=== PATIENT | male | born 1995 | race Caucasian/White ===

== ENCOUNTER 2021-02-21 17:08 | Emergency (ER) | payer SELFPAY ==
--- OUTSIDE RECORDS SUMMARY | 2021-02-21 17:10 | XMS REPORT | Continuity of Care Document ---
:1995 Author Organization [facility] t Address [address] [place] [address] Care Team Providers Name Role Phone Pcp, Does Not Have A Primary Care Physician Parker DIAZ S Attending Clinician Doctor Unassigned, Name Attending Clinician Unavailable Problems Condition Condition Condition Status Onset Resolution Last Treating Co mments Source Name Details Category Date Date Treatment Clinician Date No known No known Disease Unive rs active active ity of problems problems [facility] Allergies, Adverse Reactions, Alerts Allergy Allergy Status Severity Reaction(s) Onset Inactive Treating Comm ents Source Name Type Date Date Clinician AMOXICIL DRUG Active Anaphylaxis 2019-0 Uni vers ELIZABETH 6-21 ity of (BULK) 00:00: [place] 00 [facility] Amoxicil Propensi Active Anaphylaxis 2019-0 U nivers elizabeth ty to 6-21 ity of (Bulk) adverse 00:00: [place] reaction 00 [facility] Social History Social Habit Start Date Stop Date Quantity Comments Source Exposure to Not sure [facility] SARS-CoV-2 (event) Medica l Branch Sex Assigned At [birth year] [facility] 00:00:00 00:00:00 Medical Branch Smoking Status Start Date Stop Date Source Unknown if ever smoked [facility] Medications Ordered Filled Start Stop Current Ordering Indication Dosage Frequency Signature Comments Components Source Medication Medication Date Date Medication? Clinician (SIG) Name Name ketorolac 2020-02- No 30mg 30 mg, Unive rs (TORADOL) 0-18 10-18 Slow IV ity of injection 03:30: 02:43 Push, [place] 30 mg 00 :00 ONCE, 1 Medical dose, On Branch 11/30/20 at 2230, Routine
member of the legislative assembly approving Restricted medication : JAIR LARA pantoprazol 2020-02 Yes [id number] 40mg Take 1 Univers e 0-17 tablet by ity of (PROTONIX) 00:00: mouth [place] 40 mg EC 00 daily. Medical tablet Branch ibuprofen 2020-02 Yes [id number] 800mg Take 1 U nivers 800 mg 0-17 tablet by ity of tablet 00:00: mouth [place] 00 every 8 Medical (eight) Branch hours as needed for Pain (scale 4-6). ondansetron Yes [id number] 4mg Take 1 Univers (ZOFRAN 6-21 tablet by ity of ODT) 4 mg 00:00: mouth [place] disintegrat 00 every 8 Medic al ing tablet (eight) Branch hours as needed for Nausea and Vomiting (N/V). acetaminoph Yes [id number] 1{tbl} Take 1 Univers en-codeine 6-21 tablet by ity of (TYLENOL-CO 00:00: mouth [place] DEINE #3) 00 every 6 Medical 300-30 mg (six) Branch tablet hours as needed for Pain (scale 4-6) (for cough). ondansetron Yes [id number] 4mg Take 1 Univers (ZOFRAN 6-21 tablet by ity of ODT) 4 mg 00:00: mouth [place] disintegrat 00 every 8 Medic al ing tablet (eight) Branch hours as needed for Nausea and Vomiting (N/V). acetaminoph Yes [id number] 1{tbl} Take 1 Univers en-codeine 6-21 tablet by ity of (TYLENOL-CO 00:00: mouth [place] DEINE #3) 00 every 6 Medical 300-30 mg (six) Branch tablet hours as needed for Pain (scale 4-6) (for cough). Immunizations Ordered Filled Immunization Date Status Comments [facility] e Immunization Name Name HPV 2010-01-30 Completed University 00:00:00 [facility] HPV 2010-01-30 Completed University 00:00:00 [facility] HEPATITIS A 2006-09-13 Completed University of 00:00:00 [facility] HEPATITIS A 2006-09-13 Completed University of 00:00:00 [facility] MMR 2001-03-29 Completed University of 00:00:00 [facility] Polio (IPV/OPV) 2001-03-29 Completed Universit y of 00:00:00 [facility] DTAP 2001-03-29 Completed University of 00:00:00 [facility] MMR 2001-03-29 Completed University of 00:00:00 [facility] Polio (IPV/OPV) 2001-03-29 Completed Universit y of 00:00:00 [facility] DTAP 2001-03-29 Completed University of 00:00:00 [facility] HIB 4 Dose Schedule 1998-01-27 Completed Unive rsity of 00:00:00 [facility] Hep B, Adol or Pedi 1998-01-27 Completed Unive rsity of Dosage 00:00:00 [facility] MMR 1998-01-27 Completed University of 00:00:00 [facility] Polio (IPV/OPV) 1998-01-27 Completed Universit y of 00:00:00 [facility] DTAP 1998-01-27 Completed University of 00:00:00 [facility] HIB 4 Dose Schedule 1998-01-27 Completed Unive rsity of 00:00:00 [facility] Hep B, Adol or Pedi 1998-01-27 Completed Unive rsity of Dosage 00:00:00 [facility] MMR 1998-01-27 Completed University of 00:00:00 [facility] Polio (IPV/OPV) 1998-01-27 Completed Universit y of 00:00:00 [facility] DTAP 1998-01-27 Completed University of 00:00:00 [facility] DTAP 1997-11-27 Completed University of 00:00:00 [facility] Hep B, Adol or Pedi 1997-11-27 Completed Unive rsity of Dosage 00:00:00 [facility] HIB 4 Dose Schedule 1997-11-27 Completed Unive rsity of 00:00:00 [facility] MMR 1997-11-27 Completed University of 00:00:00 [facility] Polio (IPV/OPV) 1997-11-27 Completed Universit y of 00:00:00 [facility] DTAP 1997-11-27 Completed University of 00:00:00 [facility] Hep B, Adol or Pedi 1997-11-27 Completed Unive rsity of Dosage 00:00:00 [facility] HIB 4 Dose Schedule 1997-11-27 Completed Unive rsity of 00:00:00 [facility] MMR 1997-11-27 Completed University of 00:00:00 [facility] Polio (IPV/OPV) 1997-11-27 Completed Universit y of 00:00:00 [facility] DTAP 1997-05-29 Completed University of 00:00:00 [facility] Hep B, Adol or Pedi 1997-05-29 Completed Unive rsity of Dosage 00:00:00 [facility] HIB 4 Dose Schedule 1997-05-29 Completed Unive rsity of 00:00:00 [facility] DTAP 1997-05-29 Completed University of 00:00:00 [facility] Hep B, Adol or Pedi 1997-05-29 Completed Unive rsity of Dosage 00:00:00 [facility] HIB 4 Dose Schedule 1997-05-29 Completed Unive rsity of 00:00:00 [facility] DTAP 1997-01-07 Completed University of 00:00:00 [facility] HIB 4 Dose Schedule 1997-01-07 Completed Unive rsity of 00:00:00 [facility] Polio (IPV/OPV) 1997-01-07 Completed Universit y of 00:00:00 [facility] DTAP 1997-01-07 Completed University of 00:00:00 [facility] HIB 4 Dose Schedule 1997-01-07 Completed Unive rsity of 00:00:00 [facility] Polio (IPV/OPV) 1997-01-07 Completed Universit y of 00:00:00 [facility] Hep B, Adol or Pedi 1995 Completed Unive rsity of Dosage 00:00:00 [facility] Hep B, Adol or Pedi 1995 Completed Unive rsity of Dosage 00:00:00 [facility] Vital Signs Vital Name Observation Time Observation Value Comments Source Systolic blood 2020-12-01 03:00:00 115 mm[Hg] Univer sity of pressure [facility] Diastolic blood 2020-12-01 03:00:00 79 mm[Hg] Unive rsity of pressure [facility] Heart rate 2020-12-01 03:00:00 73 /min [facility] Respiratory rate 2020-12-01 03:00:00 19 /min [facility] Oxygen saturation in 2020-12-01 03:00:00 97 /min [facility] Arterial blood by [facility] Pulse oximetry Branch Body temperature 2020-12-01 01:19:53 36.61 Magui [facility] Body height 2020-12-01 01:16:00 170.2 cm [facility] Body weight 2020-12-01 01:16:00 81.647 kg [facility] BMI 2020-12-01 01:16:00 28.19 kg/m2 [facility] Procedures Procedure Date / Time Performing Clinician Source Performed EKG-12 LEAD 2020-12-01 03:06:04 Jair Lara [facility] [place] [facility] XR CHEST 1 VW 2020-12-01 02:44:57 Jair Lara [facility] [place] [facility] COVID-19 (ID NOW RAPID 2020-12-01 01:24:00 Jair Lara [facility] TESTING) Medical Branch LIPASE 2020-12-01 01:22:00 Jair Lara [facility] TROPONIN I 2020-12-01 01:22:00 Jair Lara [facility] COMP. METABOLIC PANEL 2020-12-01 01:22:00 Jair Lara [facility] ([id number]) [facility] CBC WITH DIFF 2020-12-01 01:22:00 Jair Lara [facility] [place] [facility] PROTHROMBIN TIME / INR 2020-12-01 01:22:00 Jair Lara [facility] ACTIVATED PARTIAL 2020-12-01 01:22:00 Jair Lara [facility] THRMPLAS AYAN [facility] NOTICE OF PRIVACY 2020-12-01 01:09:16 Doctor Unassigned, No [facility] PRACTICES Name [facility] CONSENT/REFUSAL FOR 2020-12-01 01:08:31 [facility] Name [facility] Encounters Start End Encounter Admission Attending Care Care Encounter Source Date/Time Date/Time Type Type Clinicians Facility Department ID 2020-11-30 2020-11-30 Emergency Yarilisa, [facility] [id number] Univers 20:11:00 22:18:00 Jair Bailey [id number] ity of [place] [id number] [facility] [id number] [facility] 084 Branch 2020-11-30 2020-11-30 Emergency X [facility] ERT [id number] Univers 20:08:00 20:08:00 ity of [facility] 2020-11-30 2020-11-30 Orders Doctor CRISTIAN [id number] Univers 00:00:00 00:00:00 Only Unassigned, NATALIE [id number] ity of [place] [facility] [id number] [facility] [id number] [facility] 009 Branch Results Test Description Test Time Test Comments Results Result Comments Source TROPONIN I 2020-12-01 02:08:16 Test Item Value Reference Range Interpretation Comme nts TROPONIN I (test code = 0.001 ng/mL See_Comment [Au tomated message] The 5130215459) system which ge nerated this result tra nsmitted reference range : <=0.034. The reference r lizeth was not used to int erpret this result as normal/abnormal . GILDA (test code = GILDA) Reference (Normal) Range (defined by the 99th percentile reference limit): <= 0.034 ng/mL Note: Cardiac troponin begins to rise 3-4 hours after the onset of ischemia. Repeat in 4-6 hours if the sample was drawn within 3-4 hours of the onset of the symptom and found normal. Diagnosis of myocardial injury is made with acute changes in cTn concentrations with at least one serial sample above the 99th percentile upper reference limit (URL), taken together with the patient's clinical presentation. Biotin has been reported to cause a negative bias, interpret results relative to patient's use of biotin. Lab Interpretation Normal (test code = 42619-4) [facility] [place] [facility] MET[facility]OLIC PANEL ([id number])2020-12-01 01:56:36 Test Item Value Reference Range Interpretation Comments NA (test code = 138 mmol/L 135-145 3159089720) K (test code = 4.2 mmol/L 3.5-5.0 5520937862) CL (test code = 104 mmol/L 98-108 3401805883) CO2 TOTAL (test code 26 mmol/L 23-31 = 3648000912) AGAP (test code = 2-16 6908281862) BUN (test code = 15 mg/dL 7-23 0958680571) GLUCOSE (test code = 91 mg/dL 70-110 6889537814) CREATININE (test code 0.91 mg/dL 0.60-1.25 = 5073691200) TOTAL BILI (test code 0.6 mg/dL 0.1-1.1 = 5299163029) CALCIUM (test code = 10.0 mg/dL 8.6-10.6 7873003750) T PROTEIN (test code 8.1 g/dL 6.3-8.2 = 9169549760) ALBUMIN (test code = 4.9 g/dL 3.5-5.0 5238929986) ALK PHOS (test code = 102 U/L 34-122 7659241214) ALTv (test code = 24 U/L 5-50 1742-6) AST(SGOT) (test code 24 U/L 13-40 = 5899668471) eGFR (test code = mL/min/1.73m2 8442994604) GILDA (test code = GILDA) Association of Glomerular Filtration Rate (GFR) and Staging of Kidney Disease* + + +- +| GFR (mL/min/1.73 m2) ?| With Kidney Damage ?| ?Without Kidney Damage+ ------+ ----+ ------+| ?>90 ?| ?Stage one ?| ? Normal ?+ -+ + -+| ?60-89 ?| ?Stage two ?| ? Decreased GFR ? + + +- +| ?30-59 ?| ?Stage three ?| ? Stage three ? + + +- +| ?15-29 ?| ?Stage four ? | ? Stage four ?+ -+ + -+| ?<15 (or dialysis) ? ?| ?Stage five ? | ? Stage five ?+ -+ + -+ *Each stage assumes the associated GFR level has been in effect for at least three months. ?Stages 1 to 5, with or without kidney disease, indicate chronic kidney disease. Notes: Determination of stages one and two (with eGFR >59mL/min/1.73 m2) requires estimation of kidney damage for at least three months as defined by structural or functional abnormalities of the kidney, manifested by either:Pathological abnormalities or Markers of kidney damage (including abnormalities in the composition of the blood or urine or abnormalities in imaging tests). [facility] [place] [facility], [id number] 01:56:36 Test Item Value Reference Range Interpretation Comments LIPASE (test code = 2193345760) 42 U/L 0-220 Lab Interpretation (test code = Normal 51141-0) [facility] [place] [facility] ResourcesaPTT2021-10-18 01:48:13 Test Item Value Reference Range Interpretation Comments APTT Patient (test See_Comment [Automat ed code = 3173-2) message] The system which generated this result transmitted reference range : 23 - 38 Seconds . The reference range was not used to interpr et this result as normal/abnormal . GILDA (test code = GILDA) The [facility] patient population mean normal value for aPTT is 30 seconds. Lab Interpretation Normal (test code = 40035-9) [facility] [place] [facility] ResourcesPROT[facility]OMBIN TIME / [id number] 01:46:18 Test Item Value Reference Range Interpretation Comments PROTIME PATIENT (test See_Comment L [Auto mated message] code = 5964-2) The system wh ich generated this result transmitted ref erence range: 12.0 - 1 4.7 Seconds. The reference range was not used to int erpret this result as normal/abnormal . INR (test code = 6301-6) Nor mal INR <1.1; Warfarin Therap eutic range 2.0 to 3. 0 or 2.5 to 3.5, dep ending upon the indica tions. Lab Interpretation (test Abnormal code = 81782-6) [facility] [place] [facility] ResourcesCB WITH [id number] 01:37:55 Test Item Value Reference Range Interpretation Comments WBC (test code = See_Comment [Automated 6690-2) message] The sy stem which generated this result transmitted reference range : 4.20 - 10.70 10*3/?L. The reference range was not used to interpret this result as normal/abnormal . RBC (test code = See_Comment [Automated 789-8) message] The sy stem which generated this result transmitted reference range : 4.26 - 5.52 10*6/?L. The reference range was not used to interpret this result as normal/abnormal . HGB (test code = 14.5 g/dL 12.2-16.4 718-7) HCT (test code = 42.3 % 38.4-49.3 4544-3) MCV (test code = 86.7 fL 81.7-95.6 787-2) MCH (test code = 29.7 pg 26.1-32.7 785-6) MCHC (test code = 34.3 g/dL 31.2-35.0 786-4) RDW-SD (test code = 38.1 fL 38.5-51.6 L 15863-4) RDW-CV (test code = 11.9 % 12.1-15.4 L 788-0) PLT (test code = See_Comment H [Automated 777-3) message] The sy stem which generated this result transmitted reference range : 150 - 328 10*3/ ?L. The reference r lizeth was not used to interpret this result as normal/abnormal . MPV (test code = 9.5 fL 9.8-13.0 L 77885-5) NRBC/100 WBC (test See_Comment [Automat ed code = 8619776744) message] The system which generated this result transmitted reference range : 0.0 - 10.0 /100 WBCs. The refer ence range was not u sed to interpret th is result as normal/abnormal . NRBC x10^3 (test code <0.01 See_Comment [Auto mated = 8431464145) message] The s ystem which generated this result transmitted reference range : 10*3/?L. The reference range was not used to interpret this result as normal/abnormal . GRAN MAT (NEUT) % 52.2 % (test code = 770-8) IMM GRAN % (test code 0.60 % = 6777371624) LYMPH % (test code = 36.6 % 736-9) MONO % (test code = 7.0 % 5905-5) EOS % (test code = 2.7 % 713-8) BASO % (test code = 0.9 % 706-2) GRAN MAT x10^3(ANC) 4.57 10*3/uL 1.99-6.95 (test code = 8559122366) IMM GRAN x10^3 (test 0.05 10*3/uL 0.00-0.06 code = 8319488193) LYMPH x10^3 (test code 3.21 10*3/uL 1.09-3.23 = 731-0) MONO x10^3 (test code 0.61 10*3/uL 0.36-1.02 = 742-7) EOS x10^3 (test code = 0.24 10*3/uL 0.06-0.53 711-2) BASO x10^3 (test code 0.08 10*3/uL 0.01-0.09 = 704-7) Lab Interpretation Abnormal (test code = 06986-8) [facility] [place] [facility]"
[2021-02-21 19:25] LABS: SARS-COV-2 RT PCR NEGATIVE (NEGATIVE)
[2021-02-21] MEDS ORDERED: ONDANSETRON 4 MG/2 ML VIAL ONE (20:08)
[2021-02-21] MEDS ORDERED: NA CHLORIDE 0.9% 1,000 ML ONE (20:08)
[2021-02-21 20:28] LABS: Absolute Lymphocytes (CBC) 2.3 K/uL (0.7-4.9); Hematocrit 42.1 % (39.6-49.0); Lymphocytes % 30.3 % (15.3-44.8); MPV 7.5 fL (7.6-11.3); RBC Red Blood Cell Count 4.86 M/uL (4.33-5.43)
[2021-02-21 20:51] LABS: BUN Blood Urea Nitrogen 11 mg/dL (7-18); Bicarbonate 24 mmol/L (21-32); Glucose Level 93 mg/dL (74-106); Potassium 3.8 mmol/L (3.5-5.1); Sodium Level 137 mmol/L (136-145)
--- NOTE | 2021-02-21 21:59 | EDPHYS ---
Physician Documentation [facility] Name: Neftaly Hernandez Age: 25 yrs Sex: Male : 1995 Arrival Date: 02/21/2021 Time: 17:09 Bed 12 Private MD: ED Physician Vitor Deluna HPI: 02/21 19:48 This 25 yrs old Male presents to ER via Ambulatory with complaints of Cough, pm1 Congestion, Headache, Vomiting. 19:48 The patient or guardian reports cough. Onset: The symptoms/episode began/occurred 1 pm1 week(s) ago. Severity of symptoms: in the emergency department the symptoms are unchanged. Modifying factors: The symptoms are alleviated by nothing, the symptoms are aggravated by nothing. Associated signs and symptoms: Pertinent positives: diarrhea, nausea, vomiting, Headache, chills, Pertinent negatives: chest pain, Shortness of breath. The patient has not experienced similar symptoms in the past. The patient has not recently seen a physician. Historical: - Allergies: 17:49 Amoxicillin; jg9 - Home Meds: 17:49 None [Active]; jg9 - PMHx: 17:49 None; jg9 - Immunization history:: Client reports having NOT received the Covid vaccine. Pneumococcal vaccine is not up to date, Flu vaccine is not up to date. - Social history:: Smoking status: Patient denies any tobacco usage or history of. ROS: 19:48 Eyes: Negative for injury, pain, redness, and discharge, ENT: Negative for injury, pm1 pain, and discharge, Cardiovascular: Negative for chest pain, palpitations, and edema. 19:48 Back: Negative for injury and pain, MS/Extremity: Negative for injury and deformity, Skin: Negative for injury, rash, and discoloration. 19:48 Constitutional: Positive for body aches, chills, Negative for poor PO intake. 19:48 Respiratory: Positive for cough, Negative for shortness of breath. 19:48 Abdomen/GI: Positive for nausea, vomiting, and diarrhea, Negative for abdominal pain, constipation. 19:48 Neuro: Positive for headache, Negative for numbness, tingling, weakness. 19:48 All other systems are negative. Exam: 19:48 Constitutional: This is a well developed, well nourished patient who is awake, alert, pm1 and in no acute distress. Head/Face: Normocephalic, atraumatic. 19:48 Skin: Warm, dry with normal turgor. Normal color with no rashes, no lesions, and no evidence of cellulitis. MS/ Extremity: Pulses equal, no cyanosis. Neurovascular intact. Full, normal range of motion. 19:48 Eyes: Exam is negative for acute changes, Extraocular movements: no acute changes, Conjunctiva: no acute changes, no injection, Sclera: no acute changes, icterus, is not appreciated. 19:48 ENT: Exam is negative for acute changes, TM's: no acute changes, Mouth: no acute changes, Lips: normal, moist, Oral mucosa: normal, pink and intact, moist. 19:48 Cardiovascular: Exam negative for acute changes, Rate: normal, Rhythm: regular, Pulses: no pulse deficits are appreciated. 19:48 Respiratory: Exam negative for acute changes, respiratory distress, shortness of breath, Breath sounds: are clear throughout. 19:48 Abdomen/GI: Inspection: abdomen appears normal, Palpation: abdomen is soft and non-tender, in all quadrants. 19:48 Neuro: Exam negative for acute changes, Orientation: Mentation: is normal, Motor: is normal, moves all fours. Vital Signs: 17:45 Pulse 75; Resp 20; Temp 99.4; Pulse Ox 100% on R/A; Weight 81.65 kg (R); Height 5 ft. 7 jg9 in. (170.18 cm) (R); 18:52 BP 137 / 78; ss 20:23 BP 132 / 79; Pulse 82; Resp 17; Pulse Ox 99% on R/A; Pain 0/10; ab2 21:38 BP 127 / 77; Pulse 79; Resp 16; Pulse Ox 99% on R/A; Pain 0/10; ab2 17:45 Body Mass Index 28.19 (81.65 kg, 170.18 cm) jg9 MDM: 18:47 Patient medically screened. pm1 21:58 Data reviewed: vital signs. Data interpreted: Pulse oximetry: on room air is 99 %. pm1 Interpretation: normal. Counseling: I had a detailed discussion with the patient and/or guardian regarding: the historical points, exam findings, and any diagnostic results supporting the discharge/admit diagnosis, lab results, the need for outpatient follow up, to return to the emergency department if symptoms worsen or persist or if there are any questions or concerns that arise at home. 02/21 18:22 Order name: COVID-19/FLU A+B (Document "Date of Onset" if Symptomatic); Complete Time: ss 19:31 02/21 19:48 Order name: CBC with Diff pm1 02/21 19:48 Order name: BMP pm1 02/21 19:48 Order name: CBC with Automated Diff; Complete Time: 20:39 EDMS 02/21 19:48 Order name: Basic Metabolic Panel; Complete Time: 21:57 EDMS Administered Medications: 20:14 Drug: NS 0.9% 1000 ml Route: IV; Rate: 1000 ml; Site: left antecubital; ab2 21:39 Follow up: Response: No adverse reaction; IV Status: Completed infusion ab2 20:14 Drug: Zofran (Ondansetron) 4 mg Route: IVP; Site: left antecubital; ab2 21:39 Follow up: Response: No adverse reaction ab2 Disposition Summary: 02/21/21 21:58 Discharge Ordered Location: Home pm1 Problem: new pm1 Symptoms: have improved pm1 Condition: Stable pm1 Diagnosis - Vomiting pm1 - Diarrhea, unspecified pm1 Followup: pm1 - With: Emergency Department - When: As needed - Reason: Worsening of condition Followup: pm1 - With: Private Physician - When: 2 - 3 days - Reason: Recheck today's complaints, Continuance of care, Re-evaluation by your physician Discharge Instructions: - Discharge Summary Sheet pm1 - Food Choices to Help Relieve Diarrhea, Adult pm1 - Diarrhea, Adult pm1 - Viral Gastroenteritis, Adult pm1 - Vomiting, Adult pm1 Forms: - Medication Reconciliation Form pm1 - Thank You Letter pm1 - Antibiotic Education pm1 - Prescription Opioid Use pm1 - Work release form pm1 Prescriptions: - ondansetron 4 mg Oral tablet,disintegrating - place 1 tablet by TRANSLINGUAL route every 8 hours As needed; 20 tablet; pm1 Refills: 0, Product Selection Permitted Signatures: Dispatcher [employer] EDMS Steve Espinoza, JAMAL [employer]FI[employer]OCIATE pm1 Consuelo Hunter RN RN jg9 Emiliano Dilalo ab2
--- NOTE | 2021-02-21 21:59 | ER ---
Nurse's Notes [facility] Name: Neftaly Hernandez Age: 25 yrs Sex: Male : 1995 Arrival Date: 02/21/2021 Time: 17:09 Bed 12 Private MD: Diagnosis: Vomiting;Diarrhea, unspecified Presentation: 02/21 17:45 Chief complaint: Patient states: I feel extremely terrible, headache feels like needles jg9 are in my head, I am congested, I've been vomiting and I feel like I was going to pass out ongoing X1 week. unvaccinated. Coronavirus screen: Vaccine status: Patient reports being unvaccinated. Ebola Screen: Patient negative for fever greater than or equal to 101.5 degrees Fahrenheit, and additional compatible Ebola Virus Disease symptoms Patient denies exposure to infectious person. Patient denies travel to an Ebola-affected area in the 21 days before illness onset. Initial Sepsis Screen: Does the patient meet any 2 criteria? No. Patient's initial sepsis screen is negative. Does the patient have a suspected source of infection? No. Patient's initial sepsis screen is negative. Risk Assessment: Do you want to hurt yourself or someone else? Patient reports no desire to harm self or others. Onset of symptoms is unknown. 17:45 Method Of Arrival: Ambulatory 9 17:45 Acuity: CORDELL 4 jg9 Triage Assessment: 17:50 General: Appears uncomfortable, Behavior is calm, cooperative. Pain: Complains of pain jg9 in head-headache x1 week. 17:51 Respiratory: Breath sounds are clear bilaterally. jg9 Historical: - Allergies: 17:49 Amoxicillin; jg9 - Home Meds: 17:49 None [Active]; jg9 - PMHx: 17:49 None; jg9 - Immunization history:: Client reports having NOT received the Covid vaccine. Pneumococcal vaccine is not up to date, Flu vaccine is not up to date. - Social history:: Smoking status: Patient denies any tobacco usage or history of. Screenin:51 Abuse screen: Denies threats or abuse. Denies injuries from another. Nutritional jg9 screening: No deficits noted. Tuberculosis screening: No symptoms or risk factors identified. Fall Risk None identified. Assessment: 17:52 Cardiovascular: Capillary refill < 3 seconds. jg9 18:37 General: Appears in no apparent distress. Behavior is calm, cooperative, Reports ss feeling ill for > 3 days. Neuro: Level of Consciousness is awake, alert, obeys commands, Oriented to person, place, time, situation. Respiratory: Reports cough that is Airway is patent Respiratory effort is even, unlabored, Respiratory pattern is regular, symmetrical. Respiratory: Reports. GI: Reports nausea, vomiting. EENT: Oral mucosa is moist. Throat is clear. Derm: Skin is intact, is healthy with good turgor, Skin is dry, Skin is pink, warm \T\ dry. normal. 20:09 Respiratory: No deficits noted. ab2 Vital Signs: 17:45 Pulse 75; Resp 20; Temp 99.4; Pulse Ox 100% on R/A; Weight 81.65 kg (R); Height 5 ft. 7 jg9 in. (170.18 cm) (R); 18:52 BP 137 / 78; ss 20:23 BP 132 / 79; Pulse 82; Resp 17; Pulse Ox 99% on R/A; Pain 0/10; ab2 21:38 BP 127 / 77; Pulse 79; Resp 16; Pulse Ox 99% on R/A; Pain 0/10; ab2 17:45 Body Mass Index 28.19 (81.65 kg, 170.18 cm) jg9 ED Course: 17:09 Patient arrived in ED. as 17:49 Triage completed. jg9 17:51 Arm band placed on right wrist. jg9 18:36 Karina Napoles RN is Primary Nurse. ss 18:37 Patient has correct armband on for positive identification. Bed in low position. ss 18:37 No provider procedures requiring assistance completed. ss 18:42 Steve Espinoza NP is PHCP. pm1 18:42 Vitor Deluna MD is Attending Physician. pm1 19:18 Primary Nurse role handed off by Karina Napoles, BIPIN cs9 19:30 Emiliano Diallo is Primary Nurse. ab2 20:14 BMP Sent. ab2 20:14 CBC with Diff Sent. ab2 20:14 CBC with Automated Diff Sent. ab2 20:14 Basic Metabolic Panel Sent. ab2 22:09 IV discontinued, intact, bleeding controlled, No redness/swelling at site. Pressure ab2 dressing applied. Administered Medications: 20:14 Drug: NS 0.9% 1000 ml Route: IV; Rate: 1000 ml; Site: left antecubital; ab2 21:39 Follow up: Response: No adverse reaction; IV Status: Completed infusion ab2 20:14 Drug: Zofran (Ondansetron) 4 mg Route: IVP; Site: left antecubital; ab2 21:39 Follow up: Response: No adverse reaction ab2 Outcome: 21:58 Discharge ordered by . pm1 22:08 Discharged to home ambulatory. ab2 22:08 Condition: good 22:08 Discharge instructions given to patient, Instructed on discharge instructions, Prescriptions given X 1. 22:09 Patient left the ED. ab2 Signatures: Emily Skaggs Shelby, RN RN ss Steve Espinoza NP [employer] pm1 Amrita Kumar cs9 Consuelo Hunter RN RN jg9 Emiliano Diallo ab2
[2021-02-21 22:28] VITALS: TEMP 99.4
[2021-02-21 22:30] VITALS: O2SAT 99
[2021-02-21 22:31] VITALS: BP 127/77
== END 2021-02-21 22:09 | disposition home or self-care (01) ==
LOC: ER 17:08
DX: R11.10 Vomiting, unspecified (principal); R19.7 Diarrhea, unspecified; Z20.822 Contact with and (suspected) exposure to COVID-19
CPT/HCPCS: 0240U; 36415; 80048; 85025; 96361; 96374; 99283; J2405; J7030

== ENCOUNTER 2022-09-17 04:18 | Emergency (ER) | payer SELFPAY ==
--- OUTSIDE RECORDS SUMMARY | 2022-09-17 04:21 | XMS REPORT | Continuity of Care Document ---
:1995 Author Organization [facility] t Address [address] [place] [address] [address] [place] [address] Care Team Providers Name Role Phone Pcp, Patient Does Not Have A Primary Care Physician [id number] Jair Lara MD Attending Clinician Doctor Unassigned, [place] Attending Clinician Unavailable Problems Condition Condition Condition Status Onset Resolution Last Treating Co mments Source Name Details Category Date Date Treatment Clinician Date No known No known Disease Unive rs active active ity of problems problems [facility] Allergies, Adverse Reactions, Alerts Allergy Allergy Status Severity Reaction(s) Onset Inactive Treating Comm ents Source Name Type Date Date Clinician AMOXICIL DRUG Active Anaphylaxis 2019-0 Uni vers ELIZABETH 6-21 ity of (BULK) 00:00: [place] 00 [facility] Branch Amoxicil Propensi Active Anaphylaxis 2019-0 U nivers elizabeth ty to 6-21 ity of (Bulk) adverse 00:00: [place] reaction 00 Medical s Branch Social History Social Habit Start Date Stop Date Quantity Comments Source Exposure to Not sure [facility] SARS-CoV-2 (event) Medica l Branch Sex Assigned At [birth year] [facility] 00:00:00 00:00:00 Medical Branch Smoking Status Start Date Stop Date Source Unknown if ever smoked [facility] Medications Ordered Filled Start Stop Current Ordering Indication Dosage Frequency Signature Comments Components Source Medication Medication Date Date Medication? Clinician (SIG) Name Name ketorolac 2020-02 No 30mg 30 mg, Unive rs (TORADOL) 0-18 10-18 Slow IV ity of injection 03:30: 02:43 Push, [place] 30 mg 00 :00 ONCE, 1 Medical dose, On Branch 11/30/20 at 2230, Routine
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 Medical tablet Branch ibuprofen 2020-02 Yes [id number] 800mg Take 1 U nivers 800 mg 0-17 tablet by ity of tablet 00:00: mouth [place] 00 every 8 Medical (eight) Branch hours as needed for Pain (scale 4-6). ondansetron Yes [id number] 4mg Take 1 Univers (ZOFRAN 6-21 tablet by ity of ODT) 4 mg 00:00: mouth [place] disintegrat 00 every 8 Medic al ing tablet (eight) Branch hours as needed for Nausea and Vomiting (N/V). acetaminoph Yes [id number] 1{tbl} Take 1 Univers en-codeine 6-21 tablet by ity of (TYLENOL-CO 00:00: mouth [place] DEINE #3) 00 every 6 Medical 300-30 mg (six) Branch tablet hours as needed for Pain (scale 4-6) (for cough). ondansetron Yes [id number] 4mg Take 1 Univers (ZOFRAN 6-21 tablet by ity of ODT) 4 mg 00:00: mouth [place] disintegrat 00 every 8 Medic al ing tablet (eight) Branch hours as needed for Nausea and Vomiting (N/V). acetaminoph Yes [id number] 1{tbl} Take 1 Univers en-codeine 6-21 tablet by ity of (TYLENOL-CO 00:00: mouth [place] DEINE #3) 00 every 6 Medical 300-30 mg (six) Branch tablet hours as needed for Pain (scale 4-6) (for cough). Immunizations Ordered Filled Immunization Date Status Comments [facility] e Immunization Name Name HPV 2010-01-30 Completed [facility] 00:00:00 [facility] 2010-01-30 Completed University of 00:00:00 [facility] HEPATITIS A 2006-09-13 Completed University of 00:00:00 [facility] HEPATITIS A 2006-09-13 Completed University of 00:00:00 [facility] MMR 2001-03-29 Completed University of 00:00:00 [facility] Polio (IPV/OPV) 2001-03-29 Completed Universit y of 00:00:00 [facility] DTAP 2001-03-29 Completed University of 00:00:00 [facility] MMR 2001-03-29 Completed University of 00:00:00 [facility] Polio (IPV/OPV) 2001-03-29 Completed Universit y of 00:00:00 [facility] DTAP 2001-03-29 Completed University of 00:00:00 [facility] HIB 4 Dose Schedule 1998-01-27 Completed Unive rsity of 00:00:00 [facility] Hep B, Adol or Pedi 1998-01-27 Completed Unive rsity of Dosage 00:00:00 [facility] MMR 1998-01-27 Completed University of 00:00:00 [facility] Polio (IPV/OPV) 1998-01-27 Completed Universit y of 00:00:00 [facility] DTAP 1998-01-27 Completed University of 00:00:00 [facility] HIB 4 Dose Schedule 1998-01-27 Completed Unive rsity of 00:00:00 [facility] Hep B, Adol or Pedi 1998-01-27 Completed Unive rsity of Dosage 00:00:00 [facility] MMR 1998-01-27 Completed University of 00:00:00 [facility] Polio (IPV/OPV) 1998-01-27 Completed Universit y of 00:00:00 [facility] DTAP 1998-01-27 Completed University of 00:00:00 [facility] DTAP 1997-11-27 Completed University of 00:00:00 [facility] Hep B, Adol or Pedi 1997-11-27 Completed Unive rsity of Dosage 00:00:00 [facility] HIB 4 Dose Schedule 1997-11-27 Completed Unive rsity of 00:00:00 [facility] MMR 1997-11-27 Completed University of 00:00:00 [facility] Polio (IPV/OPV) 1997-11-27 Completed Universit y of 00:00:00 [facility] DTAP 1997-11-27 Completed University of 00:00:00 [facility] Hep B, Adol or Pedi 1997-11-27 Completed Unive rsity of Dosage 00:00:00 [facility] HIB 4 Dose Schedule 1997-11-27 Completed Unive rsity of 00:00:00 [facility] MMR 1997-11-27 Completed University of 00:00:00 [facility] Polio (IPV/OPV) 1997-11-27 Completed Universit y of 00:00:00 [facility] DTAP 1997-05-29 Completed University of 00:00:00 [facility] Hep B, Adol or Pedi 1997-05-29 Completed Unive rsity of Dosage 00:00:00 [facility] HIB 4 Dose Schedule 1997-05-29 Completed Unive rsity of 00:00:00 [facility] DTAP 1997-05-29 Completed University of 00:00:00 [facility] Hep B, Adol or Pedi 1997-05-29 Completed Unive rsity of Dosage 00:00:00 [facility] HIB 4 Dose Schedule 1997-05-29 Completed Unive rsity of 00:00:00 [facility] DTAP 1997-01-07 Completed University of 00:00:00 [facility] HIB 4 Dose Schedule 1997-01-07 Completed Unive rsity of 00:00:00 [facility] Polio (IPV/OPV) 1997-01-07 Completed Universit y of 00:00:00 [facility] DTAP 1997-01-07 Completed University of 00:00:00 [facility] HIB 4 Dose Schedule 1997-01-07 Completed Unive rsity of 00:00:00 [facility] Polio (IPV/OPV) 1997-01-07 Completed Universit y of 00:00:00 [facility] Hep B, Adol or Pedi 1995 Completed Unive rsity of Dosage 00:00:00 [facility] Hep B, Adol or Pedi 1995 Completed Unive rsity of Dosage 00:00:00 [facility] Vital Signs Vital Name Observation Time Observation Value Comments Source Systolic blood 2020-12-01 03:00:00 115 mm[Hg] Univer sity of pressure [facility] Diastolic blood 2020-12-01 03:00:00 79 mm[Hg] [facility] pressure [facility] Heart rate 2020-12-01 03:00:00 73 /min [facility] Respiratory rate 2020-12-01 03:00:00 19 /min [facility] Oxygen saturation in 2020-12-01 03:00:00 97 /min [facility] Arterial blood by [facility] Pulse oximetry [place] Body temperature 2020-12-01 01:19:53 36.61 [facility] Body height 2020-12-01 01:16:00 170.2 cm [facility] Body weight 2020-12-01 01:16:00 81.647 kg [facility] BMI 2020-12-01 01:16:00 28.19 kg/m2 [facility] Procedures Procedure Date / Time Performing Clinician Source Performed EKG-12 LEAD 2020-12-01 03:06:04 Jair Lara [facility] XR CHEST 1 VW 2020-12-01 02:44:57 Jair Lara [facility] COVID-19 (ID NOW RAPID 2020-12-01 01:24:00 Jair Lara [facility] TESTING) [facility] LIPASE 2020-12-01 01:22:00 Jair Lara [facility] TROPONIN I 2020-12-01 01:22:00 Jair Lara [facility] COMP. METABOLIC PANEL 2020-12-01 01:22:00 Jair Lara [facility] ([id number]) [facility] CBC WITH DIFF 2020-12-01 01:22:00 Jair Lara [facility] PROTHROMBIN TIME / INR 2020-12-01 01:22:00 Jair Lara [facility] ACTIVATED PARTIAL 2020-12-01 01:22:00 Jair Lara [facility] THRMPLAS [facility] NOTICE OF PRIVACY 2020-12-01 01:09:16 Doctor Unassigned, No [facility] PRACTICES Name [facility] CONSENT/REFUSAL FOR 2020-12-01 01:08:31 Doctor Unassigned, No Un [facility] DIAGNOSIS AND TREATMENT Name Medical Branch Encounters Start End Encounter Admission Attending Care Care Encounter Source Date/Time Date/Time Type Type Clinicians Facility Department ID 2020-11-30 2020-11-30 Emergency [place], [facility] [id number] Univers 20:11:00 22:18:00 Jair Bailey [id number] ity [facility] [id number] [facility] [id number] [facility] 084 Branch 2020-11-30 2020-11-30 Emergency X [facility] ERT [id number] Univers 20:08:00 20:08:00 ity [facility] 2020-11-30 2020-11-30 Orders Doctor CRISTIAN [id number] Univers 00:00:00 00:00:00 Only Unassigned, NATALIE [id number] ity of [place] [facility] [id number] [facility] [id number] [facility] 009 Branch Results Test Description Test Time Test Comments Results Result Comments Source TROPONIN I 2020-12-01 02:08:16 Test Item Value Reference Range Interpretation Comme nts TROPONIN I (test code = 0.001 ng/mL See_Comment [Au tomated message] The [id number]) system which ge nerated this result tra [...] biotin. Lab Interpretation Normal (test code = 66029-3) [facility]. METABOLIC PANEL (02752)2020-12-01 01:56:36 Test Item Value Reference Range Interpretation Comments NA (test code = 138 mmol/L 135-145 6123510894) K (test code = 4.2 mmol/L 3.5-5.0 6753667201) CL (test code = 104 mmol/L 98-108 8032634936) CO2 TOTAL (test code 26 mmol/L 23-31 = 4848644325) AGAP (test code = 2-16 0314666172) BUN (test code = 15 mg/dL 7-23 8232920384) GLUCOSE (test code = 91 mg/dL 70-110 1342118472) CREATININE (test code 0.91 mg/dL 0.60-1.25 = 9270007072) TOTAL BILI (test code 0.6 mg/dL 0.1-1.1 = 4862525987) CALCIUM (test code = 10.0 mg/dL 8.6-10.6 8803456312) T PROTEIN (test code 8.1 g/dL 6.3-8.2 = 3694646051) ALBUMIN (test code = 4.9 g/dL 3.5-5.0 2144304765) ALK PHOS (test code = 102 U/L 34-122 7375739954) ALTv (test code = 24 U/L 5-50 1742-6) AST(SGOT) (test code 24 U/L 13-40 = 4264802401) eGFR (test code = mL/min/1.73m2 5842424981) GILDA (test code = GILDA) Association of [...] or urine or abnormalities in imaging tests). [id number] 01:56:36 Test Item Value Reference Range Interpretation Comments LIPASE (test code = 7166693247) 42 U/L 0-220 Lab Interpretation (test code = Normal 46316-8) [facility] 01:48:13 Test Item Value Reference Range Interpretation Comments APTT Patient (test See_Comment [Automat ed code = 3173-2) message] The system which generated this result transmitted reference range : 23 - 38 Seconds . The reference range was not used to interpr et this result as normal/abnormal . GILDA (test code = GILDA) The [facility] patient population mean normal value for aPTT is 30 seconds. Lab Interpretation Normal (test code = 44877-0) [facility] / [id number] 01:46:18 Test Item Value Reference Range Interpretation [...] tions. Lab Interpretation (test Abnormal code = 76825-7) [facility] [id number] 01:37:55 Test Item Value Reference Range Interpretation [...] (test code = 38.1 fL 38.5-51.6 L 59246-9) RDW-CV (test code = 11.9 % 12.1-15.4 L 788-0) PLT (test code = See_Comment H [Automated 777-3) message] The sy stem which generated this result transmitted reference range : 150 - 328 10*3/ ?L. The reference r lizeth was not used to interpret this result as normal/abnormal . MPV (test code = 9.5 fL 9.8-13.0 L 96873-5) NRBC/100 WBC (test See_Comment [Automat ed code = 1303267014) message] The system which generated this result transmitted reference range : 0.0 - 10.0 /100 WBCs. The refer ence range was not u sed to interpret th is result as normal/abnormal . NRBC x10^3 (test code <0.01 See_Comment [Auto mated = 5108189557) message] The s ystem which generated this result transmitted reference range : 10*3/?L. The reference range was not used to interpret this result as normal/abnormal . GRAN MAT (NEUT) % 52.2 % (test code = 770-8) IMM GRAN % (test code 0.60 % = 5739732596) LYMPH % (test code = 36.6 % 736-9) MONO % (test code = 7.0 % 5905-5) EOS % (test code = 2.7 % 713-8) BASO % (test code = 0.9 % 706-2) GRAN MAT x10^3(ANC) 4.57 10*3/uL 1.99-6.95 (test code = 0817431608) IMM GRAN x10^3 (test 0.05 10*3/uL 0.00-0.06 code = 7082303608) LYMPH x10^3 (test code 3.21 10*3/uL 1.09-3.23 = 731-0) MONO x10^3 (test code 0.61 10*3/uL 0.36-1.02 = 742-7) EOS x10^3 (test code = 0.24 10*3/uL 0.06-0.53 711-2) BASO x10^3 (test code 0.08 10*3/uL 0.01-0.09 = 704-7) Lab Interpretation Abnormal (test code = 01952-0) [facility]"
[2022-09-17 04:38] LABS: Absolute Lymphocytes (CBC) 3.4 K/uL (0.7-4.9); Hematocrit 40.3 % (39.6-49.0); Lymphocytes % 41.2 % (15.3-44.8); MCV 85.4 fL (80-100); MPV 7.3 fL (7.6-11.3); RBC Red Blood Cell Count 4.72 M/uL (4.33-5.43)
[2022-09-17] MEDS ORDERED: KETOROLAC 30 MG/ML INJ ONE (04:45)
[2022-09-17] MEDS ORDERED: NA CHLORIDE 0.9% 1,000 ML ONE ×2 (04:46→05:18)
[2022-09-17] MEDS ORDERED: ONDANSETRON 4 MG/2 ML VIAL ONE (04:46)
[2022-09-17 04:55] LABS: Albumin 3.9 g/dL (3.4-5.0); Bilirubin Total 0.7 mg/dL (0.2-1.0); Potassium 3.5 mEq/L (3.5-5.1); Protein, Total 7.7 g/dL (6.4-8.2)
[2022-09-17 04:55] LABS: Specific Gravity > 1.030 (1.005-1.030); Urine Bacteria 20-50 /HPF (<20); Urine Bilirubin NEGATIVE (Negative); Urine Blood 3+ (OVER) (Negative); Urine Clarity Extremely Turbid (Clear); Urine Color Light-Orange (Yellow); Urine Glucose NEGATIVE (Negative); Urine Mucus 4+ /HPF (None Seen); Urine Protein 1+ (Negative); Urine RBC >50 /HPF (None Seen); Urine Urobilinogen Normal (Normal); Urine pH 5.5 (5.0-7.0)
[2022-09-17] MEDS ORDERED: MORPHINE 4 MG/ML SYR ONE (05:17)
[2022-09-17] MEDS ORDERED: CEFTRIAXONE 1000 MG/VIAL ONE (05:18)
[2022-09-17] MEDS ORDERED: TAMSULOSIN 0.4 MG SR CAP ONE (05:18)
--- NOTE | 2022-09-17 06:06 | EDPHYS ---
Physician Documentation [facility] Name: Neftaly Hernandez Age: 26 yrs Sex: Male : 1995 Arrival Date: 09/17/2022 Time: 04:18 Bed 6 Private MD: ED Physician Kade Walter HPI: 09/17 05:02 This 26 yrs old Male presents to ER via Ambulatory with complaints of Low alvardao Back Pain. 05:02 The patient presents with pain that is acute, with no known mechanism of injury. The alvarado symptoms are located in the low back, right mid back and right low back. The pain radiates to the right mid back and right low back. The problem was sustained from unknown cause. Onset: The symptoms/episode began/occurred this morning, today. Modifying factors: The patient symptoms are alleviated by nothing, the patient symptoms are aggravated by nothing. Associated signs and symptoms: Pertinent positives: nausea. Severity of symptoms: At their worst the symptoms were moderate, severe, in the emergency department the symptoms are unchanged. The patient has not experienced similar symptoms in the past. Historical: - Allergies: 04:46 Amoxicillin; kd3 - Immunization history:: Adult Immunizations up to date. - Social history:: Smoking status: unknown. ROS: 05:04 Constitutional: Negative for fever, chills, and weight loss, Eyes: Negative for injury, alvarado pain, redness, and discharge, ENT: Negative for injury, pain, and discharge, Neck: Negative for injury, pain, and swelling, Cardiovascular: Negative for chest pain, palpitations, and edema, Respiratory: Negative for shortness of breath, cough, wheezing, and pleuritic chest pain, : Negative for injury, bleeding, discharge, and swelling, MS/Extremity: Negative for injury and deformity, Skin: Negative for injury, rash, and discoloration, Neuro: Negative for headache, weakness, numbness, tingling, and seizure, Psych: Negative for depression, anxiety, suicide ideation, homicidal ideation, and hallucinations, Allergy/Immunology: Negative for hives, rash, and allergies, Endocrine: Negative for neck swelling, polydipsia, polyuria, polyphagia, and marked weight changes, Hematologic/Lymphatic: Negative for swollen nodes, abnormal bleeding, and unusual bruising. 05:04 Abdomen/GI: Positive for abdominal pain, of the anterior aspect of right lateral abdomen, posterior aspect of right lateral abdomen, right upper quadrant and right lower quadrant. Exam: 05:04 Constitutional: This is a well developed, well nourished patient who is awake, alert, alvarado and in no acute distress. Head/Face: Normocephalic, atraumatic. Eyes: Pupils equal round and reactive to light, extra-ocular motions intact. Lids and lashes normal. Conjunctiva and sclera are non-icteric and not injected. Cornea within normal limits. Periorbital areas with no swelling, redness, or edema. ENT: Nares patent. No nasal discharge, no septal abnormalities noted. Tympanic membranes are normal and external auditory canals are clear. Oropharynx with no redness, swelling, or masses, exudates, or evidence of obstruction, uvula midline. Mucous membranes moist. Neck: Trachea midline, no thyromegaly or masses palpated, and no cervical lymphadenopathy. Supple, full range of motion without nuchal rigidity, or vertebral point tenderness. No Meningismus. Chest/axilla: Normal chest wall appearance and motion. Nontender with no deformity. No lesions are appreciated. Cardiovascular: Regular rate and rhythm with a normal S1 and S2. No gallops, murmurs, or rubs. Normal PMI, no JVD. No pulse deficits. Respiratory: Lungs have equal breath sounds bilaterally, clear to auscultation and percussion. No rales, rhonchi or wheezes noted. No increased work of breathing, no retractions or nasal flaring. Abdomen/GI: Soft, non-tender, with normal bowel sounds. No distension or tympany. No guarding or rebound. No evidence of tenderness throughout. Male : Normal genitalia with no discharge or lesions. Skin: Warm, dry with normal turgor. Normal color with no rashes, no lesions, and no evidence of cellulitis. MS/ Extremity: Pulses equal, no cyanosis. Neurovascular intact. Full, normal range of motion. Neuro: Awake and alert, GCS 15, oriented to person, place, time, and situation. Cranial nerves II-XII grossly intact. Motor strength 5/5 in all extremities. Sensory grossly intact. Cerebellar exam normal. Normal gait. Psych: Awake, alert, with orientation to person, place and time. Behavior, mood, and affect are within normal limits. 05:04 Back: pain, that is moderate, ROM is normal, normal spinal alignment noted, CVA tenderness, that is moderate, is noted on the right. Vital Signs: 04:45 BP 125 / 76; Pulse 84; Resp 16; Temp 97.7(O); Pulse Ox 100% ; kd3 04:56 BP 121 / 54; Pulse 58; Resp 16; Pulse Ox 97% on R/A; kd3 05:40 BP 125 / 79; Pulse 49; Resp 16; Pulse Ox 99% on R/A; kd3 06:08 BP 115 / 75; Pulse 52; Resp 18; Pulse Ox 99% on R/A; kd3 MDM: 04:28 Patient medically screened. [facility] 05:05 Differential diagnosis: UTI, nephrolithiasis, pyelonephritis, UTI. Data reviewed: vital alvarado signs, nurses notes, lab test result(s), radiologic studies, CT scan. Consideration of Admission/Observation Escalation of care including admission/observation considered. I considered the following discharge prescriptions or medication management in the emergency department Medications were administered in the Emergency Department. See MAR. Independent interpretation of the following test(s) in the Emergency Department CT Scan: My interpretation is ct stone. Test considered but Not performed: Ultrasound no abd usg. Historians other than the Patient: Spouse/Significant Other: . Care significantly affected by the following chronic conditions: none. Counseling: I had a detailed discussion with the patient and/or guardian regarding: the historical points, exam findings, and any diagnostic results supporting the discharge/admit diagnosis, lab results, radiology results, the need for outpatient follow up, for definitive care, a urologist. 09/17 04:28 Order name: CBC with Diff; Complete Time: 05:01 [facility] 09/17 04:28 Order name: CMP; Complete Time: 05:01 [facility] 09/17 04:28 Order name: Lipase; Complete Time: 05:01 [facility] 09/17 04:28 Order name: Urinalysis w/ reflexes; Complete Time: 05:01 [facility] 09/17 04:28 Order name: CT Stone Protocol [facility] 09/17 04:28 Order name: IV Saline Lock; Complete Time: 04:46 [facility] 09/17 04:28 Order name: Labs collected and sent; Complete Time: 04:46 [facility] Administered Medications: 04:45 Drug: Ketorolac IVP 15 mg Route: IVP; Site: left antecubital; kd3 06:10 Follow up: Response: No adverse reaction; Pain is decreased kd3 04:45 Drug: Ondansetron IVP 4 mg Route: IVP; Site: left antecubital; kd3 06:09 Follow up: Response: No adverse reaction; Nausea is decreased kd3 04:45 Drug: NS 0.9% IV 1000 ml Route: IV; Rate: 1000 ml; Site: left antecubital; kd3 06:20 Follow up: IV Status: Completed infusion; IV Intake: 1000ml kd3 04:46 Drug: Ketorolac IVP 15 mg Route: IVP; Site: left antecubital; kd3 06:09 Follow up: Response: No adverse reaction; Pain is decreased kd3 05:16 Drug: morphine IVP or IV 4 mg Route: IVP; Infused Over: 4 mins; Site: left antecubital; kd3 06:09 Follow up: Response: No adverse reaction; Pain is decreased kd3 05:16 Drug: Flomax PO 0.4 mg Route: PO; kd3 06:09 Follow up: Response: No adverse reaction kd3 05:16 Drug: NS 0.9% IV 1000 ml Route: IV; Rate: 1 bolus; Site: left antecubital; kd3 06:20 Follow up: IV Status: Completed infusion; IV Intake: 100ml kd3 05:16 Drug: Rocephin IV 1 grams Route: IV; Rate: per protocol; Site: left antecubital; kd3 06:09 Follow up: Response: No adverse reaction kd3 06:20 Follow up: IV Status: Completed infusion kd3 Disposition Summary: 09/17/22 06:05 Discharge Ordered Location: Home alvarado Problem: new alvarado Symptoms: have improved alvarado Condition: Stable alvarado Diagnosis - Hydronephrosis with renal and ureteral calculous obstruction alvarado Followup: alvarado - With: Private Physician - When: 2 - 3 days - Reason: Recheck today's complaints, Re-evaluation by your physician Followup: alvarado - With: - When: 2 - 3 days - Reason: Recheck today's complaints, Re-evaluation by your physician Discharge Instructions: - Discharge Summary Sheet alvarado - Kidney Stones alvarado - Kidney Stones, [id number] alvarado - Hydronephrosis alvarado - Dietary Guidelines to Help Prevent Kidney Stones alvarado Forms: - Medication Reconciliation Form alvarado - Thank You Letter alvarado - Antibiotic Education alvarado - Prescription Opioid Use alvarado - Patient Portal Instructions alvarado - Work release form pf1 Prescriptions: - acetaminophen-codeine 300-30 mg Oral tablet - take 2 tablet by ORAL route 4 times per day; 24 tablet; Refills: 0, Product [facility] Selection Permitted - Flomax 0.4 mg Oral capsule - take 1 capsule by ORAL route every 24 hours; 20 capsule; Refills: 0, Product [facility] Selection Permitted - Zofran 4 mg Oral Tablet - take 1 tablet by ORAL route every 12 hours As needed; 20 tablet; Refills: 0, [facility] Product Selection Permitted - Cipro 500 mg Oral Tablet - take 1 tablet by ORAL route every 12 hours for 7 days; 14 tablet; Refills: 0, [facility] Product Selection Permitted Signatures: Dispatcher [employer] Kade Zapata MD MD cha Doucette, Kyli RN RN kd3
--- NOTE | 2022-09-17 06:06 | ER ---
Nurse's Notes [facility] Name: Neftaly Hernandez Age: 26 yrs Sex: Male : 1995 Arrival Date: 09/17/2022 Time: 04:18 Bed 6 Private MD: Diagnosis: Hydronephrosis with renal and ureteral calculous obstruction Presentation: 09/17 04:24 Chief complaint: Patient states: My right lower back started hurting this morning all kd3 of the sudden. It hurts so bad. I have never had kidney stones but my dad has them all the time. Ebola Screen: No symptoms or risks identified at this time. Initial Sepsis Screen: Does the patient meet any 2 criteria? No. Patient's initial sepsis screen is negative. Does the patient have a suspected source of infection? No. Patient's initial sepsis screen is negative. Risk Assessment: Do you want to hurt yourself or someone else? Patient reports no desire to harm self or others. Onset of symptoms was September 17, 2022. 04:24 Method Of Arrival: Ambulatory kd3 04:24 Acuity: CORDELL 3 kd3 06:20 Coronavirus screen: Vaccine status: Patient reports being unvaccinated. kd3 Triage Assessment: 04:24 General: Appears distressed, Behavior is cooperative, anxious. Pain: Complains of pain kd3 in right low back. Historical: - Allergies: 04:46 Amoxicillin; kd3 - Immunization history:: Adult Immunizations up to date. - Social history:: Smoking status: unknown. Screenin:46 [facility] ED Fall Risk Assessment (Adult) History of falling in the last 3 months, kd3 including since admission No falls in past 3 months (0 pts) Confusion or Disorientation No (0 pts) Intoxicated or Sedated No (0 pts) Impaired Gait No (0 pts) Mobility Assist Device Used No (0 pt) Altered Elimination No (0 pt) Score/Fall Risk Level 0 - 2 = Low Risk Maintained a safe environment. Abuse screen: Denies threats or abuse. Denies injuries from another. Nutritional screening: No deficits noted. Tuberculosis screening: No symptoms or risk factors identified. Assessment: 04:53 General: Appears uncomfortable, Behavior is calm, cooperative. Pain: Complains of pain kd3 in right low back. Neuro: Level of Consciousness is awake, alert, obeys commands, Oriented to person, place, time, situation. Cardiovascular: Patient's skin is warm and dry. Respiratory: Airway is patent Trachea midline Respiratory effort is even, unlabored, Respiratory pattern is regular, symmetrical. Vital Signs: 04:45 BP 125 / 76; Pulse 84; Resp 16; Temp 97.7(O); Pulse Ox 100% ; kd3 04:56 BP 121 / 54; Pulse 58; Resp 16; Pulse Ox 97% on R/A; kd3 05:40 BP 125 / 79; Pulse 49; Resp 16; Pulse Ox 99% on R/A; kd3 06:08 BP 115 / 75; Pulse 52; Resp 18; Pulse Ox 99% on R/A; kd3 ED Course: 04:19 Patient arrived in ED. am2 04:23 Kailee Perez, BIPIN is Primary Nurse. kd3 04:25 Triage completed. kd3 04:25 Kade Walter MD is Attending Physician. alvarado 04:46 Urinalysis w/ reflexes Sent. kd3 04:46 Lipase Sent. kd3 04:46 CMP Sent. kd3 04:46 Inserted saline lock: 20 gauge in left antecubital area, using aseptic technique. Blood kd3 collected. 04:46 Arm band placed on right wrist. kd3 04:46 Patient has correct armband on for positive identification. Placed in gown. Bed in low kd3 position. Call light in reach. Side rails up X 1. Provided Education on: . Client placed on continuous cardiac and pulse oximetry monitoring. NIBP monitoring applied. 05:08 CT Stone Protocol In Process Unspecified. EDMS 06:05 Shamir Rico MD is Referral Physician. alvarado 06:20 No provider procedures requiring assistance completed. IV discontinued, intact, kd3 bleeding controlled, No redness/swelling at site. Pressure dressing applied. Administered Medications: 04:45 Drug: Ketorolac IVP 15 mg Route: IVP; Site: left antecubital; kd3 06:10 Follow up: Response: No adverse reaction; Pain is decreased kd3 04:45 Drug: Ondansetron IVP 4 mg Route: IVP; Site: left antecubital; kd3 06:09 Follow up: Response: No adverse reaction; Nausea is decreased kd3 04:45 Drug: NS 0.9% IV 1000 ml Route: IV; Rate: 1000 ml; Site: left antecubital; kd3 06:20 Follow up: IV Status: Completed infusion; IV Intake: 1000ml kd3 04:46 Drug: Ketorolac IVP 15 mg Route: IVP; Site: left antecubital; kd3 06:09 Follow up: Response: No adverse reaction; Pain is decreased kd3 05:16 Drug: morphine IVP or IV 4 mg Route: IVP; Infused Over: 4 mins; Site: left antecubital; kd3 06:09 Follow up: Response: No adverse reaction; Pain is decreased kd3 05:16 Drug: Flomax PO 0.4 mg Route: PO; kd3 06:09 Follow up: Response: No adverse reaction kd3 05:16 Drug: NS 0.9% IV 1000 ml Route: IV; Rate: 1 bolus; Site: left antecubital; kd3 06:20 Follow up: IV Status: Completed infusion; IV Intake: 100ml kd3 05:16 Drug: Rocephin IV 1 grams Route: IV; Rate: per protocol; Site: left antecubital; kd3 06:09 Follow up: Response: No adverse reaction kd3 06:20 Follow up: IV Status: Completed infusion kd3 Medication: 04:47 VIS not applicable for this client. kd3 Intake: 06:20 IV: 100ml; Total: 100ml. kd3 06:20 IV: 1000ml; Total: 1100ml. kd3 Outcome: 06:05 Discharge ordered by MD. childers 06:20 Discharged to home ambulatory, with family. kd3 06:20 Condition: stable 06:20 Discharge instructions given to patient, family, Instructed on discharge instructions, follow up and referral plans. medication usage, Demonstrated understanding of instructions, follow-up care, medications, Prescriptions given X 4. 06:21 Patient left the ED. kd3 Signatures: Dispatcher [employer] Kade Zapata MD MD cha Moreno, Amanda am2 Doucette, Kyli, RN RN kd3
[2022-09-17 06:40] VITALS: TEMP 97.7
[2022-09-17 06:43] VITALS: O2SAT 99
[2022-09-17 06:44] VITALS: BP 115/75
--- NOTE | 2022-09-17 17:50 | RAD REPORT ---
EXAM DESCRIPTION: Stone Protocol CLINICAL HISTORY: 26 years Male Abd pain;Flank pain COMPARISON: None TECHNIQUE: CT of the abdomen and pelvis without contrast. All CT scans at this facility use dose modulation, iterative reconstruction, and/or weight based dosi ng when appropriate to reduce radiation dose to as low as reasonably achievable. FINDINGS: Lower thorax: Lung bases are clear Abdomen: Stomach: Within normal limits Liver: No focal lesions. No intrahepatic ductal distention. Gallbladder: Nondistended Pancreas: Within normal limits Spleen: Within normal limits Right kidney: Mild hydronephrosis. Tiny 1 to 2 mm distal ureteral stone (axial image 137). Left kidney: No hydronephrosis. No renal or ureteral calculi. Adrenal glands: Within normal limits Vascular structures: Within normal limits (although limited evaluation on noncontrast exam). Lymph nodes: No lymphadenopathy by size criteria Pelvis: Small bowel: No significant distention. Appendix: Within normal limits Colon: No distention or acute pericolonic edema. Scattered areas of submucosal fat deposition within the colon. Peritoneum: No free intraperitoneal fluid or air. Bones: No acute bone findings. Bladder: Unremarkable. Reproductive organs: No acute findings. Soft tissues: Moderate right fat-containing inguinal hernia. Small fat-containing umbilical hernia. Note that evaluation of the bowel and solid organs is somewhat limited due to lack of intravenous and oral contrast. IMPRESSION: 1. Tiny 1 to 2 mm distal right ureteral stone. Mild right-sided hydronephrosis. 2. Scattered areas of submucosal fat deposition within the colon, can be seen in setting of underly ing chronic inflammatory bowel disease. Electronically signed by: Angelica Galdamez MD 09/17/2022 5:36 AM CDT Due to temporary technical issues with the PACS/Fluency reporting system, reports are being signed by the in house radiologists without review as a courtesy to insure prompt reporting. The interpreting radiologist is fully responsible for the content of the report.
== END 2022-09-17 06:21 | disposition home or self-care (01) ==
LOC: ER 04:18
DX: N13.2 Hydronephrosis with renal and ureteral calculous obstruction (principal); Z88.1 Allergy status to other antibiotic agents
CPT/HCPCS: 36415; 74176; 76377; 80053; 81001; 83690; 85025; 96361; 96365; 96375; 99284; J0696; J2405; J7030